=== PATIENT | female | born 1935 | race Two or more races ===

== ENCOUNTER 2021-01-03 15:30 | Emergency (ER) | payer MEDICARE ==
[2021-01-03 15:45] VITALS: TEMP 98.5
--- NOTE | 2021-01-03 16:19 | ED ---
General Adult HPI - General Chief complaint: Recheck/Abnormal Lab/Rx Stated complaint: SVT Time Seen by Provider: 01/03/21 15:38 Source: patient, EMS Mode of arrival: EMS Limitations: no limitations - History of Present Illness Initial comments: Dictation was produced using [employer] dictation software. please excuse any grammatical, word or spelling errors. This patient was cared for during a federal and state declared state of emergency secondary to Covid 19 Chief Complaint: 85-year-old female past medical history of dementia and ta chydysrhythmia presents to the emergency department for tachydysrhythmia History of Present Illness: 85-year-old female she is a resident at [facility]. She is rarely rehabilitating for urinary tract infection according to nurse received report from EMS. She was brought here because she was found to have elevated heart rates measuring 170-180. EMS reports that en route here she did have an elevated blood pressure. It improved spontaneously evaluated interventions while in route to our emergency department. Patient has history of dementia. EMS reports the patient is currently at baseline. She however denies any complaints at this time. Unable to obtain ROS secondary to mental status PHYSICAL EXAM: General Impression: Alert and oriented x1/4, not in acute distress HEENT: Normocephalic atraumatic, extra-ocular movements intact, pupils equal and reactive to light bilaterally, mucous membranes moist. Cardiovascular: Heart regular rate and rhythm Chest: Able to complete full sentences, no retractions, no tachypnea Abdomen: abdomen soft, non-tender, non-distended, no organomegaly Musculoskeletal: Pulses present and equal in all extremities, no peripheral edema Motor: no focal deficits noted Neurological: CN II-XII grossly intact, no focal motor or sensory deficits noted Skin: Intact with no visualized rashes Psych: Normal affect and mood ED course: 85-year-old female presents to the emergency department for episode of tachycardia dysrhythmia that resolved spontaneously prior to arrival to the emergency department. [place] upon arrival are within acceptable limits. Heart rate is 69. Laboratory evaluation obtained. CBC remarkable. Metabolic panel shows magnesium 1.5. Magnesium replaced. BUN 26 creatinine of 0.73. Patient observed in the emergency department for approximately 3 hours and 30 minutes with no recurrent episodes of tachydysrhythmias. Patient reevaluated bedside at 6:50 PM out of a stable medical condition. Patient continues to have no complaints. Family member at bedside reports that she was recently discontinued from her atenolol due to bradycardia. Patient given a dose of metoprolol and a small prescription for metoprolol. She is advised to follow-up with desktop support manager or primary care physician for reevaluation and to assess patient's tolerance to beta blockers. EKG interpretation: Ventricular rate 65, normal sinus rhythm, NM interval 122, QRS 70, QTC 399. No NM prolongation, no QTC prolongation, no ST or T-wave changes noted. Overall, this EKG is unremarkable - Related Data Home Medications Medication Instructions Recorded Confirmed Acetaminophen [Tylenol] 650 mg PO Q4H PRN 01/03/21 01/03/21 Benazepril HCl [Lotensin] 40 mg PO DAILY@0800 01/03/21 01/03/21 Brimonidine Tartrate [Alphagan P 1 drops LEFT EYE BID@0800,169901/03/21 01/03/21 0.2% Ophth Soln] Cyanocobalamin [Vitamin B-12] 1,000 mcg PO DAILY@169901/03/21 01/03/21 Diclofenac Sodium [Voltaren 1 applic TOPICAL TID@0800,1400,209901/03/21 01/03/21 Arthritis Pain 1% Gel] Donepezil HCl [Aricept] 5 mg PO HS@209901/03/21 01/03/21 Ergocalciferol (Vitamin D2) 1,250 mcg PO WE@169901/03/21 01/03/21 [Drisdol (50,000 Iu)] Lactose-Reduced Food [Ensure Plus] 1 can PO TID@0800,1200,0 01/03/21 01/03/21 Magnesium Hydroxide [Milk of 7,200 mg PO DAILY PRN 01/03/21 01/03/21 Magnesia Concentrate] Magnesium Oxide 400 mg PO DAILY@169901/03/21 01/03/21 Melatonin 1 mg PO HS@209901/03/21 01/03/21 Na Phos,M-B/Na Phos,Di-Ba [Fleet 133 ml RECTAL DAILY PRN 01/03/21 01/03/21 Adult] Pravastatin Sodium [Pravachol] 20 mg PO HS@209901/03/21 01/03/21 Sodium Chloride Tab 1 gm PO DAILY@1700 01/03/21 01/03/21 Timolol 0.5% Ophth Soln [Timoptic 1 drop BOTH EYES BID@0800,1700 01/03/21 01/03/21 0.5% Ophth Soln] Vit A/Vit C/Vit E/Zinc/Copper 1 cap PO DAILY@1700 01/03/21 01/03/21 [ICAPS SOFTGEL] bisacodyL [Dulcolax] 10 mg RECTAL DAILY PRN 01/03/21 01/03/21 carvediloL [Coreg] 6.25 mg PO BID@0800,1700 01/03/21 01/03/21 traMADol HCL [Ultram] 50 mg PO BID PRN 01/03/21 01/03/21 Previous Rx's Medication Instructions Recorded Metoprolol Tartrate [Lopressor] 12.5 mg PO BID #60 dose 01/03/21 Allergies Allergy/AdvReac Type Severity Reaction Status Date / Time No Known Allergies Allergy Verified 01/03/21 17:31 Review of Systems ROS Statement: Those systems with pertinent positive or pertinent negative responses have been documented in the HPI. ROS Other: All systems not noted in ROS Statement are negative. Past Medical History Past Medical History: Coronary Artery Disease (CAD), Dementia, Hyperlipidemia, Hypertension Additional Past Medical History / Comment(s): UTI, Hypokalemia, History of Any Multi-Drug Resistant Organisms: None Reported Past Surgical History: No Surgical Hx Reported Past Alcohol Use History: Unable to Obtain Past Drug Use History: Unable to Obtain General Exam Limitations: no limitations Course Vital Signs 01/03/21 01/03/21 01/03/21 15:37 16:15 16:49 Temperature 98.5 F Pulse Rate 69 59 L Pulse Rate [ 69 Process Expert ] Respiratory 18 18 Rate Blood Pressure 117/72 117/67 O2 Sat by Pulse 96 97 Oximetry 01/03/21 01/03/21 01/03/21 16:57 18:18 18:53 Temperature Pulse Rate 54 L 59 L 59 L Pulse Rate [ Process Expert ] Respiratory 18 16 18 Rate Blood Pressure 113/71 132/68 131/68 O2 Sat by Pulse 96 98 98 Oximetry Medical Decision Making - Lab Data Result diagrams: 01/03/21 16:08 01/03/21 16:08 Lab Results 01/03/21 01/03/21 Range/Units 16:08 16:08 WBC 8.9 (3.8-10.6) k/uL RBC 3.99 (3.80-5.40) m/uL Hgb 12.0 (11.4-16.0) gm/dL Hct 35.2 (34.0-46.0) % MCV 88.3 (80.0-100.0) fL MCH 30.2 (25.0-35.0) pg MCHC 34.2 (31.0-37.0) g/dL RDW 12.8 (11.5-15.5) % Plt Count 262 (150-450) k/uL MPV 8.6 Neutrophils % 74 % Lymphocytes % 16 % Monocytes % 5 % Eosinophils % 4 % Basophils % 0 % Neutrophils # 6.6 (1.3-7.7) k/uL Lymphocytes # 1.4 (1.0-4.8) k/uL Monocytes # 0.4 (0-1.0) k/uL Eosinophils # 0.3 (0-0.7) k/uL Basophils # 0.0 (0-0.2) k/uL Sodium 140 (137-145) mmol/L Potassium 3.9 (3.5-5.1) mmol/L Chloride 103 (98-107) mmol/L Carbon Dioxide 29 (22-30) mmol/L Anion Gap 8 mmol/L BUN 26 H (7-17) mg/dL Creatinine 0.73 (0.52-1.04) mg/dL Est GFR (CKD-EPI)AfAm 86 (>60 ml/min/1.73 sqM) Est GFR (CKD-EPI)NonAf 75 (>60 ml/min/1.73 sqM) Glucose 125 H (74-99) mg/dL Calcium 9.3 (8.4-10.2) mg/dL Magnesium 1.5 L (1.6-2.3) mg/dL Disposition Clinical Impression: Tachyarrhythmia, Hypomagnesemia Disposition: HOME SELF-CARE Condition: Fair Instructions (If sedation given, give patient instructions): Heart Palpitations (ED) Additional Instructions: Please do not continue atenolol. Patient will be started on low-dose metoprolol 12.5 mg by mouth daily. Prescriptions: Metoprolol Tartrate [Lopressor] 12.5 mg PO BID #60 dose Is patient prescribed a controlled substance at d/c from ED?: No Referrals: Padmini Bell MD [Primary Care Provider] - 1-2 days Time of Disposition: 19:00
[2021-01-03 16:21] LABS: Basophils % (A) 0 %; Eosinophils # (A) 0.3 k/uL (0-0.7); Eosinophils % (A) 4 %; HCT 35.2 % (34.0-46.0); Lymphocytes # (A) 1.4 k/uL (1.0-4.8); Lymphocytes % (A) 16 %; MCH 30.2 pg (25.0-35.0); MCHC 34.2 g/dL (31.0-37.0); MCV 88.3 fL (80.0-100.0); Mean Platelet Volume 8.6; Monocytes # (A) 0.4 k/uL (0-1.0); Monocytes % (A) 5 %; Neutrophils # (A) 6.6 k/uL (1.3-7.7); Neutrophils % (A) 74 %; Platelet Count 262 k/uL (150-450); RBC 3.99 m/uL (3.80-5.40); RDW 12.8 % (11.5-15.5); WBC 8.9 k/uL (3.8-10.6)
[2021-01-03 16:36] LABS: Calcium 9.3 mg/dL (8.4-10.2); Magnesium 1.5 mg/dL (1.6-2.3); Potassium 3.9 mmol/L (3.5-5.1)
[2021-01-03] MEDS ORDERED: MAGNESIUM OXIDE 400 MG TAB PO STA (18:46)
[2021-01-03 18:54] VITALS: RESP 18
[2021-01-03] MEDS ORDERED: METOPROLOL TARTRATE 12.5 MG TAB PO STA (19:02)
[2021-01-03 19:20] VITALS: PULSE 63
[2021-01-03 20:40] VITALS: BP 143/72
== END 2021-01-03 20:43 | disposition home or self-care (01) ==
LOC: EC 15:30
DX: R00.0 Tachycardia, unspecified (principal); I25.10 Atherosclerotic heart disease of native coronary artery without angina pectoris; I10 Essential (primary) hypertension; F03.90 Unspecified dementia, unspecified severity, without behavioral disturbance, psychotic disturbance, mood disturbance, and anxiety; E83.42 Hypomagnesemia; E78.5 Hyperlipidemia, unspecified
CPT/HCPCS: 36415; 80048; 83735; 85025; 93005; 99285